=== PATIENT | female | born 1990 | race Caucasian/White ===

== ENCOUNTER → 2020-03-28 13:27 | Outpatient (CLI) | payer OTHER, MEDICAID, SELFPAY ==
[2020-03-28 14:53] LABS: HCG Quantitative /Beta subunit 156.8 mIU/mL
== END ==
PROVIDERS: Family Provider Family Medicine; PCP Family Medicine; Referring Provider Family Medicine; Visit Provider Family Medicine
DX: N91.2 Amenorrhea, unspecified (principal)
CPT/HCPCS: 36415; 84702

== ENCOUNTER → 2020-04-03 13:37 | Outpatient (CLI) | payer OTHER, MEDICAID, SELFPAY ==
--- NOTE | 2020-04-03 | DI.US.S_ITS ---
PROCEDURE: US OB <= 14 WEEKS FETUS INDICATIONS: INITIAL SIZE AND DATES OUTSIDE/PRIOR DATING DATA: Last menstrual period (LMP): Unknown. LMP-based estimated date of delivery (FLAVIA): Unknown. First dating scan (date and location): 04/03/20. Estimated date of delivery (FLAVIA) from first dating scan: 12/03/20. TECHNIQUE: Real-time scanning was performed of the fetus and maternal pelvic organs, with image documentation. Endovaginal scanning was also performed to better visualize the fetus and maternal ovaries. COMPARISON: None. FINDINGS: Embryo: A presumed intrauterine gestational sac seen with a means gestational sac diameter measuring 0.4 cm, 5 weeks and one day. However, pole is not visualized. There is a 7 x 3 x 10 mm dedrick-gestational sac fluid collection probably hematoma. Measurement variability in dating: +/- 4 weeks by LMP, +/- 7 days by mean sac diameter (use before 6 weeks gestation if crown-rump length not able to be measured), +/- 5 days by crown-rump length (up to 8 weeks 6 days gestation), +/- 7 days by crown-rump length (up to 13 weeks 6 days gestation). Maternal organs: Within the left ovary, 2.0 1.6 x 2.0 cm solid-appearing or complex cystic possible corpus luteum. The right ovary is not well-visualized. Limited images through the kidneys demonstrate no hydronephrosis. IMPRESSION: Presumed intrauterine gestational sac however no pole identified. Technically, findings could represent early IUP, missed spontaneous although cannot entirely rule out ectopic . Recommend correlation with serial beta-hCG values and repeat pelvic ultrasound in one week as clinically warranted Small dedrick-gestational sac hematoma Dictated by: Cliff Barnard M.D. on 04/03/2020 at 14:29 Approved by: Cliff Barnard M.D. on 04/03/2020 at 14:59
== END ==
PROVIDERS: Family Provider Family Medicine; PCP Family Medicine; Referring Provider Family Medicine; Visit Provider Family Medicine
DX: Z34.91 Encounter for supervision of normal pregnancy, unspecified, first trimester (principal); Z3A.01 Less than 8 weeks gestation of pregnancy
CPT/HCPCS: 76801; 76817

== ENCOUNTER → 2020-04-11 09:46 | Outpatient (CLI) | payer OTHER, MEDICAID, SELFPAY ==
--- NOTE | 2020-04-11 | DI.US.S_ITS ---
PROCEDURE: US OB <= 14 WEEKS FETUS INDICATIONS: SIZE AND DATES OUTSIDE/PRIOR DATING DATA: Last menstrual period (LMP): None. LMP-based estimated date of delivery (FLAVIA): Not applicable. First dating scan (date and location): 04/03/20. Estimated date of delivery (FLAVIA) from first dating scan: 12/03/20. TECHNIQUE: Real-time scanning was performed of the fetus and maternal pelvic organs, with image documentation. Endovaginal scanning was also performed to better visualize the fetus and maternal ovaries. COMPARISON: [facility], OB <= 14 WEEKS FETUS, 04/03/2020, 13:47. FINDINGS: Embryo: Single living intrauterine gestation with an estimated sonographic gestational age of approximately 6 weeks and 0 days based off mean gestational sac diameter measurement of 1.24 cm. cardiac activity measured 83 beats per minute. A pole was not identified secondary to early gestational age. Normal-appearing yolk sac. Previously described possible subchorionic hemorrhage is not appreciated on this examination. Measurement variability in dating: +/- 4 weeks by LMP, +/- 7 days by mean sac diameter (use before 6 weeks gestation if crown-rump length not able to be measured), +/- 5 days by crown-rump length (up to 8 weeks 6 days gestation), +/- 7 days by crown-rump length (up to 13 weeks 6 days gestation). Maternal organs: There is a left corpus luteal cyst measuring 1.9 x 1.4 x 2.3 cm with possible internal hemorrhage. Small amount of free fluid near the posterior cul-de-sac. Limited images through the kidneys demonstrate no hydronephrosis. IMPRESSION: 1. Single living intrauterine gestation with an estimated sonographic gestational age of approximately 6 weeks and 0 days. Expected interval growth has occurred. Clinical and imaging followup recommended. 2. Left ovarian corpus hemorrhagicum. Dictated by: Gabe Ricardo M.D. on 04/11/2020 at 11:32 Approved by: Gabe Ricardo M.D. on 04/11/2020 at 12:45
== END ==
PROVIDERS: Family Provider Family Medicine; PCP Family Medicine; Referring Provider Family Medicine; Visit Provider Family Medicine
DX: Z36.87 Encounter for antenatal screening for uncertain dates (principal); O34.81 Maternal care for other abnormalities of pelvic organs, first trimester; N83.12 Corpus luteum cyst of left ovary; Z3A.01 Less than 8 weeks gestation of pregnancy
CPT/HCPCS: 76801; 76817

== ENCOUNTER → 2020-04-29 09:45 | Outpatient (CLI) | payer OTHER, MEDICAID, SELFPAY ==
--- NOTE | 2020-04-29 | DI.US.S_ITS ---
PROCEDURE: US OB <= 14 WEEKS FETUS INDICATIONS: SIZE AND DATES OUTSIDE/PRIOR DATING DATA: Last menstrual period (LMP): Not available. LMP-based estimated date of delivery (FLAVIA): Not available. First dating scan (date and location): 04/29/2020 at . Estimated date of delivery (FLAVIA) from first dating scan: 12/05/2020. TECHNIQUE: Real-time scanning was performed of the fetus and maternal pelvic organs, with image documentation. Endovaginal scanning was also performed to better visualize the fetus and maternal ovaries. COMPARISON: [facility], , OB <= 14 WEEKS FETUS, 04/03/2020, 13:47. FINDINGS: Embryo: There is a single living IUP. heart rate is 160 BPM. Based on the crown-rump length, the estimated gestational age is 8 weeks 4 days. There is an appearing normal yolk sac. A small subchorionic hematoma is seen measuring 1.3 x 1.3 x 0.8 cm left of the gestation sac. Measurement variability in dating: +/- 4 weeks by LMP, +/- 7 days by mean sac diameter (use before 6 weeks gestation if crown-rump length not able to be measured), +/- 5 days by crown-rump length (up to 8 weeks 6 days gestation), +/- 7 days by crown-rump length (up to 13 weeks 6 days gestation). Maternal organs: Ovaries are grossly normal. Right ovary measures 3.6 x 2.0 x 2.2 cm. Left ovary measures 2.6 x 2.0 x 1.7 cm. Limited images through the kidneys demonstrate no hydronephrosis. IMPRESSION: 1. A single living intrauterine gestation with the estimated gestational age 8 weeks 4 days corresponding to ultrasound FLAVIA 12/05/2020. 2. A small subcarinal hematoma is present measuring 1.3 x 1.3 x 0.8 cm. Dictated by: Nabil Corea M.D. on 04/29/2020 at 16:12 Approved by: Nabil Corea M.D. on 04/29/2020 at 16:22
== END ==
PROVIDERS: Family Provider Family Medicine; PCP Family Medicine; Referring Provider Family Medicine; Visit Provider Family Medicine
DX: Z34.91 Encounter for supervision of normal pregnancy, unspecified, first trimester (principal); Z3A.08 8 weeks gestation of pregnancy
CPT/HCPCS: 76801; 76817

== ENCOUNTER → 2020-07-02 11:12 | Outpatient (CLI) | payer OTHER, MEDICAID, SELFPAY ==
--- NOTE | 2020-07-02 | DI.US.S_ITS ---
PROCEDURE: OB >= 14 WEEKS FETUS INDICATIONS: ANATOMY SCAN OUTSIDE/PRIOR DATING DATA: Last menstrual period (LMP): Unknown LMP-based estimated date of delivery (FLAVIA): Unknown . First dating scan (date and location): 04/03/20 . Estimated date of delivery (FLAVIA) from first dating scan: 12/03/20 . TECHNIQUE: Real-time scanning was performed of the fetus, with image documentation and biometric measurements. Endovaginal scanning: Not performed COMPARISON: [facility] OB <= 14 WEEKS FETUS, 04/11/2020, 10:06. [facility] OB <= 14 WEEKS FETUS, 04/03/2020, 13:47. [facility] OB <= 14 WEEKS FETUS, 04/29/2020, 10:04. FINDINGS: General: A single living intrauterine gestation is present. Presentation: Vertex Placenta: No placenta previa Amniotic fluid index: 8.0 cm, normal range is 5-24 cm. heart rate: 149 beats per minute. Maternal cervical canal: 4.2 cm long. Normal lower limit is 2.5 cm. biometrics: Biparietal diameter: 4.2 cm, 18 weeks 4 days Head circumference: 15.2 cm, 18 weeks 1 day Abdominal circumference: 12.4 cm, 18 weeks 0 days Femur length: 2.9 cm, 18 weeks 6 days Estimated gestational age from initial scan: 18 weeks 0 days Composite gestational age from present scan: 18 weeks 3 days Estimated weight and percentile: 239 g, 71st percentile Measurement variability for biometric dating: +/- 7 days from 14 weeks to 15 weeks 6 days gestation, +/- 10 days from 16 weeks to 21 weeks 6 days gestation, +/- 2 weeks from 22 weeks to 27 weeks 6 days gestation, +/- 3 weeks for 28 weeks gestation or later. weight reference: 4500 g or EFW >90/95% is considered macrosomia or large for gestational age. EFW <10% is small for gestational age. EFW 5% or less is considered intra-uterine growth restriction. Anatomic survey: Neuro: Ventricles are non-dilated at less than 10 mm. Cisterna magna is normal at 3-11 mm. Cerebellum is normal in size and morphology. Nuchal skin fold: Normal at less than 6 mm between 14-21 weeks gestational age. Face: Nose and lips, facial profile are normal. Spine: No evidence for spina bifida. Heart: 4-chambered heart is present, with normal ventricular outflow tracts. Diaphragm: Diaphragm is intact. Stomach: Left-sided stomach is present. Kidneys: No hydronephrosis. Normal is less than 5 mm in 2nd trimester, less than 7 mm in 3rd trimester. Cord: 3-vessel cord has orthotopic insertion. Bladder: Normal in size. Extremities: All 4 extremities identified. IMPRESSION: Single living intrauterine fetus in vertex presentation. Expected interval growth Normal anatomic survey Dictated by: Cliff Barnard M.D. on 07/02/2020 at 15:46 Approved by: Cliff Barnard M.D. on 07/02/2020 at 15:52
== END ==
PROVIDERS: Family Provider Family Medicine; PCP Family Medicine; Referring Provider Family Medicine; Visit Provider Family Medicine
DX: Z36.89 Encounter for other specified antenatal screening (principal); Z3A.18 18 weeks gestation of pregnancy
CPT/HCPCS: 76811

== ENCOUNTER → 2020-08-14 14:20 | Outpatient (CLI) | payer OTHER, MEDICAID, SELFPAY ==
[2020-08-14 16:26] LABS: Hematocrit 35.8 % (36-46); Hemoglobin 12.1 g/dL (12.0-16.0)
[2020-08-14 16:44] LABS: Hemoglobin A1C% w Est Avg Glu 4.7 % (4.0-6.0)
[2020-08-14 16:52] LABS: GTT (PREG) 1 Hour PP 50gm Dose 101 mg/dL (76-139)
== END ==
PROVIDERS: Family Provider Family Medicine; PCP Family Medicine; Referring Provider Family Medicine; Visit Provider Family Medicine
DX: Z34.80 Encounter for supervision of other normal pregnancy, unspecified trimester (principal)
CPT/HCPCS: 36415; 82950; 83036; 85014; 85018

== ENCOUNTER 2020-10-21 14:49 | Outpatient (CLI) | payer OTHER, MEDICAID, SELFPAY | END 2020-10-21 15:45 | disposition home or self-care (01) | LOC: LABOR 15:37 → OB 10-23 11:53 | PROVIDERS: Family Provider Family Medicine; PCP Family Medicine; Referring Provider Family Medicine; Visit Provider Family Medicine | DX: O36.8130 Decreased fetal movements, third trimester, not applicable or unspecified (principal); Z3A.33 33 weeks gestation of pregnancy | CPT/HCPCS: 59025; G0378; G0379 ==

== ENCOUNTER 2020-10-31 11:16 | Outpatient (CLI) | payer OTHER, MEDICAID, SELFPAY ==
--- NOTE | 2020-10-31 11:21 | DI.US.S_ITS ---
PROCEDURE: US OB >= 14 WEEKS FETUS INDICATIONS: YENI and measurement OUTSIDE/PRIOR DATING DATA: Last menstrual period (LMP): Not available. LMP-based estimated date of delivery (FLAVIA): Not available . First dating scan (date and location): 07/02/2020 at . Estimated date of delivery (FLAVIA) from first dating scan: 12/04/2019. TECHNIQUE: Real-time scanning was performed of the fetus, with image documentation and biometric measurements. Endovaginal scanning: Mild performed COMPARISON: [facility], OB >= 14 WEEKS FETUS, 07/02/2020, 11:52. FINDINGS: General: A single living intrauterine gestation is present. Presentation: Vertex. Placenta: Placental position is posterior right , without previa. Amniotic fluid index: 20.0 cm, normal range is 5-24 cm. Largest pocket 6.2 cm. There are low-level echos within the amniotic fluid. heart rate: 136 beats per minute. Maternal cervical canal: Not visualized. biometrics: Biparietal diameter: 38 weeks 1 day Head circumference: 39 weeks 4 days Abdominal circumference: 38 weeks 2 days Femur length: 37 weeks 5 days Estimated gestational age from initial scan: 30 5 weeks 2 days. Composite gestational age from present scan: 38 weeks 3 days Estimated weight and percentile: 3441 gm; 99% Measurement variability for biometric dating: +/- 7 days from 14 weeks to 15 weeks 6 days gestation, +/- 10 days from 16 weeks to 21 weeks 6 days gestation, +/- 2 weeks from 22 weeks to 27 weeks 6 days gestation, +/- 3 weeks for 28 weeks gestation or later. weight reference: 4500 g or EFW >90/95% is considered macrosomia or large for gestational age. EFW <10% is small for gestational age. EFW 5% or less is considered intra-uterine growth restriction. Anatomic survey: Neuro: Ventricles are non-dilated at less than 10 mm. Cisterna magna is normal at 3-11 mm. Cerebellum is normal in size and morphology. Nuchal skin fold: Normal at less than 6 mm between 14-21 weeks gestational age. Face: Nose and lips, facial profile are normal. Spine: No evidence for spina bifida. Heart: 4-chambered heart is present, with normal ventricular outflow tracts. Diaphragm: Diaphragm is intact. Stomach: Left-sided stomach is present. Kidneys: No hydronephrosis. Normal is less than 5 mm in 2nd trimester, less than 7 mm in 3rd trimester. Cord: 3-vessel cord has orthotopic insertion. Bladder: Normal in size. Extremities: All 4 extremities identified. IMPRESSION: 1. A single living intrauterine gestation with size greater than date. 2. The weight is at the 99th percentile suggesting macrosomia. 3. YENI 20.0 cm. Low-level echos within the amniotic fluid. Dictated by: Nabil Corea M.D. on 10/31/2020 at 11:57 Approved by: Nabil Corea M.D. on 10/31/2020 at 12:01
== END 2020-10-31 12:20 | disposition home or self-care (01) ==
LOC: LABOR 12:12 → OB 11-11 08:59
PROVIDERS: Family Provider Family Medicine; PCP Family Medicine; Referring Provider Family Medicine; Visit Provider Family Medicine
DX: O36.63X0 Maternal care for excessive fetal growth, third trimester, not applicable or unspecified (principal); Z3A.35 35 weeks gestation of pregnancy
CPT/HCPCS: 59025; 59050; 76811; 84112; G0378; G0379

== ENCOUNTER → 2020-11-03 17:57 | Outpatient (ROUT) | payer OTHER, MEDICAID, SELFPAY | PROVIDERS: Family Provider Family Medicine; PCP Family Medicine; Visit Provider Family Medicine | DX: Z34.80 Encounter for supervision of other normal pregnancy, unspecified trimester (principal) | CPT/HCPCS: 87081 ==

== ENCOUNTER → 2020-11-17 10:09 | Outpatient (CLI) | payer OTHER, MEDICAID, SELFPAY ==
--- NOTE | 2020-11-17 10:11 | DI.US.S_ITS ---
PROCEDURE: US OB LIMITED INDICATIONS: Macrosomia OUTSIDE/PRIOR DATING DATA: Last menstrual period (LMP): Not available. LMP-based estimated date of delivery (FLAVIA): Not available . First dating scan (date and location): 04/03/20 . Estimated date of delivery (FLAVIA) from first dating scan: 12/03/20. TECHNIQUE: Real-time scanning was performed of the fetus, with image documentation and biometric measurements. Endovaginal scanning: Not needed [facility], 16:16. FINDINGS: General: A single living intrauterine gestation is present. Presentation: Vertex Placenta: Placental position is left fundal , without previa. Amniotic fluid index: 14.3 cm, normal range is 5-24 cm. heart rate: 140 beats per minute. Maternal cervical canal: 4.4 cm long. Normal lower limit is 2.5 cm. biometrics: Biparietal diameter: 9.6 cm, 39 weeks 2 days Head circumference: 37.1 cm, term Abdominal circumference: 35 cm, 38 weeks 6 days Femur length: 7.4 cm, 37 weeks 4 days Estimated gestational age from initial scan: not applicable. Composite gestational age from present scan: 38 weeks 4 days Estimated weight and percentile: 3736 g, 92 percentile Measurement variability for biometric dating: +/- 7 days from 14 weeks to 15 weeks 6 days gestation, +/- 10 days from 16 weeks to 21 weeks 6 days gestation, +/- 2 weeks from 22 weeks to 27 weeks 6 days gestation, +/- 3 weeks for 28 weeks gestation or later. weight reference: 4500 g or EFW >90/95% is considered macrosomia or large for gestational age. EFW <10% is small for gestational age. EFW 5% or less is considered intra-uterine growth restriction. Other: Not applicable. IMPRESSION: Current estimated weight is 3736 g, at the 90 second percentile for current gestational age. Macrosomia is not suspected at this time. The delivery date is projected to be centered on 12/03/20. Dictated by: Rickey Browne M.D. on 11/17/2020 at 15:53 Approved by: Rickey Browne M.D. on 11/17/2020 at 15:58
== END ==
PROVIDERS: Family Provider Family Medicine; PCP Family Medicine; Referring Provider Family Medicine; Visit Provider Family Medicine
DX: O36.63X0 Maternal care for excessive fetal growth, third trimester, not applicable or unspecified (principal); Z3A.38 38 weeks gestation of pregnancy
CPT/HCPCS: 76815

== ENCOUNTER 2020-12-01 19:24 | Observation (INO) | payer OTHER, MEDICAID, SELFPAY | END 2020-12-01 21:49 | disposition home or self-care (01) | LOC: LABOR 19:26 | PROVIDERS: Admitting Provider Family Medicine; Family Provider Family Medicine; PCP Family Medicine; Referring Provider Family Medicine; Visit Provider Family Medicine | DX: O36.63X0 Maternal care for excessive fetal growth, third trimester, not applicable or unspecified (principal); Z3A.39 39 weeks gestation of pregnancy | CPT/HCPCS: 59025; 59050; G0378; G0379 ==

== ENCOUNTER 2020-12-02 07:24 | Inpatient (IN) | payer OTHER, MEDICAID, SELFPAY ==
[2020-12-02 08:07] LABS: COVID19 -Nasal RAPID Negative (Negative)
[2020-12-02 08:45] LABS: Add Manual Diff / Slide Review NO; Basophils Absolute Auto 0 /uL (0-100); Basophils Percent Auto 0.3 % (0-2); Eosinophils Absolute Auto 100 /uL (0-450); Eosinophils Percent Auto 1.1 % (2-4); Hematocrit 37.6 % (36-46); Lymphocytes Absolute Auto 1600 /uL (1100-4500); Lymphocytes Percent Auto 15.6 % (25-40); Mean Corpuscular HGB Conc 34.6 % (30-36); Mean Corpuscular Hemoglobin 30.7 PG (26-34); Mean Corpuscular Volume 88.5 fL (80-100); Monocytes Absolute Auto 700 /uL (0-900); Monocytes Percent Auto 6.4 % (3-14); Neutrophils Absolute Auto 8100 /uL (1500-7000); Neutrophils Percent Auto 76.6 % (50-75); Platelet Count 248 X10^3/uL (150-400); Red Blood Cell Count 4.25 X10^6/uL (4.0-5.2); Red Cell Distribution Width 13.8 % (11.6-14.8); White Blood Cell Count 10.6 X10^3/uL (4.5-11.0)
[2020-12-02] MEDS: OXYTOCIN PREMIX 30 UNIT/500 ML PLAST..BAG IV (09:20)
[2020-12-02] MEDS: LACTATED RINGERS 1,000 ML 100 ML IV (09:20)
--- NOTE | 2020-12-02 13:04 | PM.OBPNLAB ---
Date/Time Date Patient Seen: 12/02/20 Time Patient Seen: 13:04 Pain Control Pain control: tolerating well Pelvic Exam Dilation (cm): 6 Effacement (%): 90 station: -1 Amniotic membrane status: Ruptured Comments: AROM 1145 clear Contractions Date/Time contractions began: 11/30/20 at 1600 Contractions on admission: irregular Monitor mode: External Pitocin rate (mU/min): 5 Contraction frequency (min): 3 Contraction duration (min): 60 Contraction intensity: Strong/Firm Status status: Category l Heart Rate Baseline: 145 Monitor Accelerations: Present Monitor Decelerations: Absent Monitor Variability: Moderate Assessment and Plan Assessment: active labor Plan: continuous present management Comments: continue with pitocin augmentation GBS negative normal GTT rh positive EFW 8lb AROM clear 1145 managing pain well
--- NOTE | 2020-12-02 15:19 | PM.OBPRVD ---
Labor & Delivery Delivery date: 12/02/20 Intrapartal Events: None Cervical ripening method: none Induction method: per pitocin protocol Delivery augmentation: rupture of membranes Delivery monitor: external FHT and external uterine Route of delivery: L&D Laceration Description: None Estimated blood loss (mL): 250 Anesthesia Type: None Complications: none Narrative: Identifying data: Very pleasant 30-year-old and 39 and 6 7th weeks estimated gestational age based on LMP in early 1st trimester ultrasound who presents to Labor and delivery for induction. Patient had started having regular uterine contractions the day prior to admission and was found to be making slow change. She preferred to labor at home and went home and returned today for induction. She had made cervical change and was 4 cm dilated and 80% effaced and -1 station at that time of presentation. She had unremarkable . She had a nuchal translucency that was normal but did not go through with the remainder of the testing. She was GBS negative. She had a normal glucose tolerance test. She received Tdap and flu shot and no other complications. Stage I: 1 hour 44 minutes Patient was admitted to the hospital early on the date of delivery. She was 4 cm and 80% effaced -1 station with irregular strong contractions. Pitocin was started. Her maximum Pitocin was 8 milliunits. She started having regular more painful contractions and artificial rupture membranes was performed at 11:45 a.m.. Her contraction pattern improved was more regular and then she developed more pain and was felt to be active at 1:00 p.m.. Patient tolerated the pain excellent. She was noted to be complete with the urge to push at 2:44 p.m.. At approximately 2:15 p.m. she was found to be 6-7 cm still with a stretchy cervix. Her demeanor then changed and was called back to Labor and delivery where I found her to be 8 cm dilated but head was more applied to the cervix and had descended to -1 0 station and patient was 100% effaced. Patient was really working to breathe through her contractions and rapidly progressed to complete and pushing. External tocometer was used throughout this stage showing contractions every 2-4 minutes. External heart monitor was used throughout this stage showing category 1 tracing with moderate variability and a baseline in the 140s with, accelerations and occasional variable deceleration and then decelerations to the 100s with uterine contractions that she got closer to complete. Baby was quite active in difficult to monitor as she progressed to completion. Stage II : 5 minutes Mom had excellent pushing and quickly delivered baby in direct occiput anterior. There was some difficulty with delivering the anterior shoulder but mom was not pushing due to pain and then when she pushed the anterior shoulder came easily and then the posterior shoulder delivered. Apgars were 8 at 1 minute 9 at 5 minutes. There was no nuchal cord. There was a long thick cord Stage III lasted 4 minutes Normal spontaneous vaginal delivery of intact placenta with central cord insertion. There were mild calcifications with a three-vessel cord. Placenta was large. Estimated blood loss was 250 cc. Pitocin was run in. Uterus firmed up quickly. There was no cervical or vaginal lacerations no vulvar lacerations and no perineal lacerations. At the time of this dictation both mom and baby are doing excellent. Plan for aftercare: Routine care
[2020-12-02] MEDS: OXYCODONE/ACETAMINOPHEN 5/325 TABLET 1 TAB PO (16:00)
[2020-12-02] MEDS: IBUPROFEN 600 MG TABLET PO ×2 (16:00→22:38)
[2020-12-02 18:13] VITALS: BP 132/74
[2020-12-02] MEDS: DOCUSATE 100 MG CAPSULE PO (22:37)
[2020-12-02] MEDS: DERMOPLAST SPRAY 20% 60 ML 1 SPRAY TOP (22:37)
[2020-12-02] MEDS: LANOLIN OINT 7 GM 1 APPLIC TOP (22:37)
[2020-12-03] MEDS: OXYCODONE/ACETAMINOPHEN 5/325 TABLET 1 TAB PO (01:32)
[2020-12-03] MEDS: IBUPROFEN 600 MG TABLET PO ×2 (04:32→10:29)
[2020-12-03 06:40] LABS: Hematocrit 35.2 % (36-46); Hemoglobin 11.8 g/dL (12.0-16.0)
[2020-12-03 08:51] VITALS: BP 140/85; PULSE 83; RESP 16; TEMP 36.4
--- NOTE | 2020-12-03 09:41 | PM.OBDS.1 ---
Discharge Providers Provider Date of admission: 12/02/20 07:24 Discharge Date: 12/03/20 Primary care physician: Loli Aden MD Consults: 12/03/20 15:10 Consult to [employer]ambling Floor Supervisor Routine Comment: Discharge provider: Loli Aden MD Summary Hospital Course Date Patient Seen: 12/03/20 Time Patient Seen: 09:42 Diagnoses: Normal spontaneous vaginal delivery Hospital Course: Patient admitted in labor augmented and proceeded to have normal spontaneous vaginal delivery without complication. She did not receive any analgesia be sides supportive treatment. She had an unremarkable course and breast-feeding was going well and pain well controlled with ibuprofen. She received 1 Percocet. She was discharged home on day 1. In stable condition with routine instructions to follow up with me in 2 weeks Peripartum Data Infant Delivery Method: Natural Vaginal Laceration Description: None Procedures: Normal spontaneous vaginal delivery complications: none Status at Discharge Cognitive/behavioral status at discharge: oriented Functional status at discharge: independent ambulation Overall status at discharge: patient is progressing back to baseline Time Spent with Patient Time attestation: Total time spent providing and/or coordinating discharge services:35 minutes Objective Labs Result Diagrams: 12/03/20 06:32 Labs: Laboratory Results - last 24 hr 12/02/20 12/03/20 08:00 06:32 Hgb 11.8 L Hct 35.2 L Blood Type A Positive Antibody Screen Negative Exam Vital Signs (past 8 hours): - 12/03/20 08:51 Temperature 97.6 F Pulse Rate 83 Respiratory Rate 16 Blood Pressure 140/85 Narrative Exam Narrative: Afebrile vital signs are stable Chest: Clear to auscultation without wheezes rhonchi or crackles Cor: Regular rate and rhythm without murmur Abdomen: Positive bowel sounds, soft, uterus well below the umbilicus and nontender Extremities no edema DTRs intact Discharge Plan Discharge Plan Patient Disposition: Home Discharge orders & Medications Prescriptions: Discontinued sertraline [Zoloft] 50 MG tablet 50 mg PO QDAY Qty: 0 RF: 0 ondansetron 4 MG tablet,disintegrating 4 mg Sublingual Q6HP PRN (Reason: Vomiting) RF: 0 oxycodone-acetaminophen [Endocet] 5 MG/325 MG tablet 1 tab PO Q4HP PRN (Reason: Pain, Moderate) RF: 0 Follow up/Referrals: Loli Aden MD [Primary Care Provider] - 2 Weeks (will schedule follow up appointment on Tuesday when at the office for check) Visit Report/Discharge Packet Stand Alone Forms: Discharge: Care Discharge Data Primary Care Provider: Loli Aden
--- NOTE | 2020-12-03 09:45 | P.HPOB_ITS ---
OB HPI Date/Time Date of admission: 12/02/20 Date Patient Seen: 12/02/20 Time Patient Seen: 08:00 History of Present Condition Chief complaint: Induction : 5 Para: 4 Estimated Date of Delivery: 12/03/20 Estimated Gestational Age (weeks): 40 Narrative: Lili Garcia is a 30 year old female at 39 and 6 7th weeks estimated gestational age who presents to Labor and delivery for induction but is already having painful uterine contractions that are changing her cervix. So Pitocin will be started and artificial rupture membranes when we are able. She has not had any leaking of fluid. She has not had any change in discharge other than feeling that she lost her mucus plug. She has not had headaches or a bdominal pain or lower extremity edema. Indications Indication for induction OB: history of rapid labor History of Present care: good care Dating criteria: LMP confirmed by 1st trimester US Ultrasounds: normal 1st trimester US and normal mid trimester US Obstetrical complications: none Medical complications: none and other Narrative: Depression started on citalopram Preadmission Labs Blood type: A (+) positive -: Antibody screen: negative, GBS status: negative, HBsAG: negative, HIV: negative, HSV 1: negative, HSV 2: negative and RPR/VDLR: negative -: Chlamydia screen: not detected and Gonorrhea screen: not detected -: Rubella: immune and Varicella: immune HCT: 35.6 HCAB: negative PAP: Normal Integrated screen: Nuchal translucency normal Urine: Negative 1 hr GTT: 101 Prior (ies) History: 1. 08/24/2008 at 40 weeks gestation normal spontaneous vaginal delivery after 6 hours of labor of a viable male infant weighing 8 lb 10 oz name Mehdi born in [place] 2. 04/08/2010 at 39 weeks gestation normal spontaneous vaginal delivery of a viable male infant weighing 7 lb 6 oz at [facility] after 10 hours of labor with epidural heart arrhythmia at 10 weeks evaluated [facility] in all normal 3. 01/18/2016 at 40 and 3 7th weeks estimated gestational age normal spontaneous vaginal delivery of a viable male weighing 10 lb 8 oz name berhane torres born in [place] and baby with some sugar lability and required hospitalization in the NICU for 3-5 days 4. 08/31/2017 at 40 weeks gestation normal spontaneous vaginal delivery of a viable male infant knee and adoniis8 lb 5 oz at [facility] without epidural after 2 hours of labor Evaluation Evaluation Laboratory results: Laboratory Tests 12/02/20 12/02/20 12/02/20 07:45 08:00 08:00 WBC 10.6 RBC 4.25 Hgb 13.0 Hct 37.6 MCV 88.5 MCH 30.7 MCHC 34.6 RDW 13.8 Plt Count 248 Neut % (Auto) 76.6 H Lymph % (Auto) 15.6 L Sanders % (Auto) 6.4 Eos % (Auto) 1.1 L Baso % (Auto) 0.3 Neut # (Auto) 8100 H Lymph # (Auto) 1600 Sanders # (Auto) 700 Eos # (Auto) 100 Baso # (Auto) 0 SARS-CoV-2 (PCR) Negative Blood Type A Positive Antibody Screen Negative 12/03/20 06:32 WBC RBC Hgb 11.8 L Hct 35.2 L MCV MCH MCHC RDW Plt Count Neut % (Auto) Lymph % (Auto) Sanders % (Auto) Eos % (Auto) Baso % (Auto) Neut # (Auto) Lymph # (Auto) Sanders # (Auto) Eos # (Auto) Baso # (Auto) SARS-CoV-2 (PCR) Blood Type Antibody Screen [facility] Social History Smoking Status: Former smoker Review of Systems Review of Systems Narrative: Review of systems negative other than HPI Exam Vital Signs (past 8 hours): - 12/03/20 08:51 Temperature 97.6 F Pulse Rate 83 Respiratory Rate 16 Blood Pressure 140/85 Narrative Exam Narrative: Afebrile vital signs are stable HEENT unremarkable Neck is supple Chest clear to auscultation For regular rate and rhythm without murmur Abdomen positive bowel sounds, soft, nontender, gravid, vertex, estimated weight 8 0.5 lb Extremities unremarkable Objective Labs Result Diagrams: 12/03/20 06:32 Labs: Laboratory Results - last 24 hr 12/02/20 12/03/20 08:00 06:32 Hgb 11.8 L Hct 35.2 L Blood Type A Positive Antibody Screen Negative Assessment and Plan Assessment and Plan Assessment and Plan narrative: 30-year-old at 39 and 6 7 weeks estimated gestational age based on a LMP and early first-trimester ultrasound x2. Patient presents for induction but is already having uterine contractions that are changing her cervix. She has had an uncomplicated . Plan: Routine care Pitocin AROM once contractions start GBS negative Mom is Rh positive Glucose tolerance test 101 Status post flu shot and Tdap External monitors. Currently category 1 tracing Assessment 2. History of depression anxiety Plan: Continue with citalopram
[2020-12-03] MEDS: PRENATAL VIT,CALC/IRON/FOLIC 1 TABLET 1 TAB PO (10:29)
[2020-12-03] MEDS: DOCUSATE 100 MG CAPSULE PO (10:29)
== END 2020-12-03 12:11 | disposition home or self-care (01) | DRG 560 ==
PROVIDERS: Admitting Provider Family Medicine; Family Provider Family Medicine; PCP Family Medicine; Referring Provider Family Medicine; Visit Provider Family Medicine
DX: O36.63X0 Maternal care for excessive fetal growth, third trimester, not applicable or unspecified (principal); Z3A.39 39 weeks gestation of pregnancy; Z37.0 Single live birth; O76 Abnormality in fetal heart rate and rhythm complicating labor and delivery; Z20.822 Contact with and (suspected) exposure to COVID-19
CPT/HCPCS: 36415; 59025; 59050; 85014; 85018; 85025; 86850; 86900; 86901; 87635; C9803; G0378; G0379; J2590

== ENCOUNTER → 2022-07-30 09:46 | Outpatient (CLI) | payer OTHER, MEDICAID, SELFPAY ==
--- NOTE | 2022-07-30 | DI.CT.S_ITS ---
PROCEDURE: CT HEAD/BRAIN WO CON INDICATIONS: Migraine, unspecified, not intractable TECHNIQUE: Noncontrast 4.5 mm thick angled axial sections acquired from the foramen magnum to the vertex, with coronal and sagittal reformats. For radiation dose reduction, the following was used: automated exposure control, adjustment of mA and/or kV according to patient size. COMPARISON: None. FINDINGS: Image quality: Excellent. CSF spaces: Basal cisterns are patent. No extra-axial fluid collections. Ventricles are normal in size and shape. Brain: No midline shift. No intracranial masses or hemorrhage. Bhakta-white matter interface is normal. Skull and face: Calvarium and visualized facial bones are intact, without suspicious lesions. Sinuses: Visualized sinuses and mastoids are clear. IMPRESSION: 1. No acute intracranial process. Dictated by: Pamela Major M.D. on 07/30/2022 at 10:43 Approved by: Pamela Major M.D. on 07/30/2022 at 10:43
== END ==
PROVIDERS: Family Provider Family Medicine; PCP Family Medicine; Referring Provider Family Medicine; Visit Provider Family Medicine
DX: G43.909 Migraine, unspecified, not intractable, without status migrainosus (principal)
CPT/HCPCS: 70450

== ENCOUNTER → 2023-04-14 12:50 | Outpatient (CLI) | payer OTHER, MEDICAID, SELFPAY ==
--- NOTE | 2023-04-14 | DI.RAD.S_ITS ---
PROCEDURE: XR LUMBAR SPINE 2-3V INDICATIONS: Low back pain, unspecified TECHNIQUE: 3 views of the lumbar spine were acquired. [facility], 08/12/2006, 15:21[facility]-3 [facility]IE[facility], 07/18/2014, 13:29. FINDINGS: Bones: There appear to be 5 [id number] vertebrae present with hypoplastic 12th ribs. No lumbar vertebral body compression fractures identified. No significant curvature of the lumbar spine. Mild disc height loss at L1-L2. Lumbar disc heights otherwise appear maintained. Minimal endplate spurring present at several levels. Soft tissues: Overlying bowel gas pattern is normal. No suspicious soft tissue calcifications. Right upper quadrant surgical clips. An IUD projects over the pelvis. IMPRESSION: Minimal degenerative changes of the lumbar spine. Dictated by: Mike Vasquez M.D. on 04/14/2023 at 16:39 Approved by: Mike Vasquez M.D. on 04/14/2023 at 16:45
== END ==
PROVIDERS: Family Provider Family Medicine; PCP Family Medicine; Referring Provider Family Medicine; Visit Provider Family Medicine
DX: M54.50 Low back pain, unspecified (principal)
CPT/HCPCS: 72100

== ENCOUNTER → 2023-07-23 16:51 | Outpatient (CLI) | payer OTHER, MEDICAID, SELFPAY ==
[2023-07-23 18:04] LABS: Influenza A - CEPHEID Flu A NEGATIVE (NEGATIVE); Influenza B - CEPHEID Flu B NEGATIVE (NEGATIVE); Respiratory Syncytial Virus Negative (Negative)
[2023-07-23 18:19] LABS: COVID-19 CEPHEID 4-PLEX PCR Negative (Negative)
== END ==
PROVIDERS: Family Provider Family Medicine; PCP Family Medicine; Visit Provider Nurse Practitioner Family
DX: J02.9 Acute pharyngitis, unspecified (principal); Z20.822 Contact with and (suspected) exposure to COVID-19
CPT/HCPCS: 0241U

== ENCOUNTER → 2024-01-14 07:28 | Outpatient (CLI) | payer OTHER, MEDICAID, SELFPAY ==
--- NOTE | 2024-01-14 | DI.MRI.S_ITS ---
PROCEDURE: MR LUMBAR SPINE WO CON INDICATIONS: Low back pain, unspecified TECHNIQUE: Noncontrast sagittal T1 spin echo and T2 fast echo, sagittal STIR, and T2 fast spin echo through the lumbar spine. In cases with scoliosis, additional coronal T2 fast spin echo may be performed. COMPARISON: [facility], CR, XR LUMBAR SPINE 2-3V, 04/14/2023, 13:02. FINDINGS: Image quality: Excellent. Alignment and Curvature: There is normal bony alignment. Bone Marrow: Marrow is of normal overall signal. No acute vertebral body compression fractures. Spinal Cord: Conus medullaris terminates at the L1-2 level. Visualized cord demonstrates normal signal and size. Paraspinous Soft Tissues: No paravertebral masses. T12-L1: No significant neuroforaminal or spinal canal stenosis. L1-L2: Degenerative endplate changes. Minimal disc height loss. Minimal symmetric disc bulge. No significant neuroforaminal or spinal canal stenosis. L2-L3: Mild degenerative endplate changes. No significant neuroforaminal or spinal canal stenosis. L3-L4: Minimal degenerative endplate changes. Mild bilateral facet arthropathy. Minimal symmetric disc bulge. No significant neuroforaminal or spinal canal stenosis. L4-L5: Mild degenerative endplate changes. Bilateral facet arthropathy. Small symmetric disc bulge. There is mild spinal canal stenosis and mild bilateral neuroforaminal stenosis at this level. L5-S1: Mild degenerative endplate changes. Bilateral facet arthropathy. No significant neuroforaminal or spinal canal stenosis. IMPRESSION: Lumbar spine without acute abnormalities. Mild multilevel lumbar spondylosis as detailed above by vertebral body level. Findings are most severe at L4-5. Dictated by: Gabe Ricardo M.D. on 01/16/2024 at 9:05 Approved by: Gabe Ricardo M.D. on 01/16/2024 at 9:18
== END ==
LOC: MRI 07:29
PROVIDERS: Family Provider Family Medicine; PCP Family Medicine; Referring Provider Family Medicine; Visit Provider Family Medicine
DX: M47.816 Spondylosis without myelopathy or radiculopathy, lumbar region (principal); M47.817 Spondylosis without myelopathy or radiculopathy, lumbosacral region; M54.50 Low back pain, unspecified; G89.29 Other chronic pain
CPT/HCPCS: 72148

== ENCOUNTER → 2025-07-09 12:17 | Outpatient (CLI) | payer OTHER, SELFPAY ==
--- NOTE | 2025-07-09 | DI.RAD.S_ITS ---
PROCEDURE: XR THORACIC SPINE 3V INDICATIONS: BILAT LOW BACK PAIN W/RT SIDED SCIATICA TECHNIQUE: 3 views of the thoracic spine were acquired. COMPARISON: None. FINDINGS: Thoracic spine curvature and alignment: Normal. Bones: Minimal chronic wedging of all thoracic vertebral bodies endplate irregularities compatible with minimal chronic Scheuermann's disease related to disc degeneration Disc spaces: Mild degenerative disc disease throughout the thoracic spine Intervertebral foramen: Grossly normal in width. Soft tissues: No soft tissue swelling, calcification or mass. IMPRESSION: Chronic findings as described Dictated by: Nikolay Hamilton M.D. on 07/10/2025 at 10:40 Approved by: Nikolay Hamilton M.D. on 07/10/2025 at 10:41
--- NOTE | 2025-07-09 | DI.RAD.S_ITS ---
PROCEDURE: XR LUMBAR SPINE 2-3V INDICATIONS: BILAT LOW BACK PAIN W/RT SIDED SCIATICA TECHNIQUE: 3 views of the lumbar spine were acquired. COMPARISON: [facility], CR, XR LUMBAR SPINE 2-3V, 04/14/2023, 13:02. FINDINGS: Lumbar spine curvature and alignment: Normal. Bones: Minimal chronic wedging of the T9 through L1 vertebral bodies with endplate irregularities compatible with minimal chronic Scheuermann's disease due to disc degeneration. Irregularity is compatible with minimal chronic Scheuermann's disease Disc spaces: Minimal degenerative disc disease T9-10 through L1-2. Mild L5-S1 degenerative facet disease . Intervertebral foramen: Grossly normal in width. Soft tissues: No soft tissue swelling, calcification or mass. IMPRESSION: Chronic findings as described Dictated by: Nikolay Hamilton M.D. on 07/10/2025 at 10:39 Approved by: Nikolay Hamilton M.D. on 07/10/2025 at 10:40
== END ==
PROVIDERS: Family Provider Family Medicine; PCP Family Medicine; Referring Provider Family Medicine; Visit Provider Family Medicine
DX: M51.34 Other intervertebral disc degeneration, thoracic region (principal); M47.817 Spondylosis without myelopathy or radiculopathy, lumbosacral region; M54.41 Lumbago with sciatica, right side; M25.551 Pain in right hip; G89.29 Other chronic pain
CPT/HCPCS: 72072; 72100